=== PATIENT | female | born 1995 | race Caucasian/White ===

== ENCOUNTER 2024-08-24 07:01 | Emergency (ER) | payer OTHER, SELFPAY ==
[2024-08-24 07:07] VITALS: BP 115/75; PULSE 96; RESP 18; TEMP 36.8; O2SAT 99; BMI 28.0
[2024-08-24 07:34] LABS: Appearance Urine Clear; Basophils Percent Auto 0.2 % (0-2); Color Urine Yellow; Eosinophils Percent Auto 0.2 % (0-4); Glucose Urine UA Negative (Negative); Hematocrit 39.5 % (37.0-47.0); Hemoglobin 13.3 g/dl (12.0-16.0); Imm Gran Abs Auto 0.02 X10*3/uL (0.00-0.03); Imm Gran Pct Auto 0.3 % (0.0-0.4); Leukocyte Esterase Urine Trace (Negative); Lymphocytes Absolute Auto 0.3 X10*3/uL (1.2-4.9); Lymphocytes Percent Auto 4.1 % (20-40); MANUAL DIFF FLAG SCAN; Mean Corpuscular HGB Conc 33.7 g/dl (31.0-35.0); Mean Corpuscular Hemoglobin 29.2 pg (27.0-33.0); Mean Corpuscular Volume 86.6 fL (80.0-98.0); Mean Platelet Volume 9.4 fL (9.4-12.3); Monocytes Absolute Auto 0.3 X10*3/uL (0.1-1.2); Monocytes Percent Auto 4.4 % (2-11); Neutrophils Percent Auto 90.8 % (45-73); Nitrite Urine Negative (Negative); Platelet Count 233 X10*3/uL (160-400); Red Blood Count 4.56 X10*6/uL (4.20-5.50); SCAN SMEAR FLAG 1; Specific Gravity - Urine 1.025 (1.005-1.025); UMIC TRIGGER UACC YES; Urine Blood Trace (Negative); Urine Ketones 40 mg/dL (Negative); Urine Protein Negative (Neg-Trace); White Blood Count 6.6 X10*3/uL (4.8-10.8)
[2024-08-24 07:36] LABS: UPreg QC Valid YES; Urine Pregnancy NEGATIVE (NEGATIVE)
[2024-08-24 07:39] LABS: Bacteria Urine 1+ (None Seen); Hyaline Casts Urine 0-2 /LPF (0-2); WBC Urine 0-5 /HPF (0-5)
--- NOTE | 2024-08-24 07:42 | ED_ITS ---
HPI - General Adult General Chief complaint: Nausea/Vomiting/Diarrhea Stated complaint: vomitting Time Seen by Provider: 08/24/24 07:42 History of Present Illness ED Provider: Анна MONTERO narrative: The patient is a 29-year-old female who says that she started to feel acutely nauseated last night when she was eating dinner at around 6 or 19:00. She says that she had just finished eating when she went to the bathroom and started to vomit and have diarrhea. She had recurrent episodes of vomiting and diarrhea throughout the night and this morning and finally came to the emergency room because of the symptoms. She says that she thinks she has probably had more diarrhea than vomiting. She says that it felt like I was peeing out my butt. No recent antibiotics. No definite fever. No definite pain. Related Data Previous Rx's ?Medication ?Instructions ?Recorded ondansetron 4 mg disintegrating 4 mg PO Q6H PRN nausea and 08/24/24 tablet vomiting #10 tabs Allergies Allergy/AdvReac Type Severity Reaction Status Date / Time Penicillins [PENICILLINS] Allergy Intermediate HIVES Verified 08/24/24 07:08 Review of Systems 2 Review of Systems: Yes all other systems are reviewed and are negative PMFSH Social History Social History Advance Directives: No Advance Directives Information Provided: No Physical Exam ED Vital Signs: Vital Signs - 24 hr 08/24/24 07:07 08/24/24 10:03 Temperature 98.3 F 98.3 F Pulse Rate 96 96 Respiratory Rate 18 18 Blood Pressure 115/75 115/75 Pulse Oximetry 99 99 Oxygen Delivery Method Room Air Room Air BMI result Body Mass Index 28.0 Const Other: The patient is awake, alert, pleasant, cooperative. She does not appear in overt distress. HENMT Other: Face is symmetrical. Mucous membranes moist. Eyes General: appearance normal, both eyes and all related structures Neck Neck: Yes full ROM Resp Effort & Inspection: normal respiratory effort Auscultation: clear to auscultation bilaterally Cardio Rate: regular rate Rhythm: regular rhythm Heart sounds: S1 normal heart sound present and S2 normal heart sound present GI Other: The abdomen seemed flat, soft, and nontender. Skin General skin exam: no rashes or lesions noted Neuro Other: The patient is awake and alert with a normal mental status. Cranial nerves are grossly intact. She moves her extremities normally and appropriately. Extrem Other: No peripheral edema Medications Administered Discontinued Medications Generic Name Dose Route Start Last Admin Trade Name Abdullahi PRN Reason Stop Dose Admin Sodium Chloride 1,000 mls @ 999 mls/hr 08/24/24 08:00 08/24/24 09:30 Ns IV 08/24/24 09:00 Infused .Q1H1M KEO Infusion Ketorolac Tromethamine 10 mg 08/24/24 07:50 08/24/24 08:04 Ketorolac Tromethamine 15 Mg/Ml Vial IVPUSH 08/24/24 07:51 10 mg ONCE ONE Administration Loperamide HCl 4 mg 08/24/24 09:42 08/24/24 10:00 Loperamide Hcl 2 Mg Capsule PO 08/24/24 09:43 4 mg ONCE ONE Administration Ondansetron HCl 4 mg 08/24/24 07:49 08/24/24 08:04 Ondansetron Hcl 4 Mg/2 Ml Vial IVPUSH 08/24/24 07:50 4 mg ONCE ONE Administration Medical Decision Making Medical Decision Making [facility] Narrative: The patient is a 29-year-old female who presents with nausea, vomiting, and diarrhea that started last night. No recent antibiotics. She seems to have a benign abdomen. Clinically she does not look toxic. Labs are unremarkable. She was treated symptomatically with IV fluids, ketorolac, and ondansetron. She was also given a dose of oral loperamide. She looked and felt better. She will be discharged with instructions for viral gastroenteritis. Lab Data 08/24/24 07:27 08/24/24 07:27 Labs: Lab Results 08/24/24 Range/Units 07:27 WBC 6.6 (4.8-10.8) X10*3/uL RBC 4.56 (4.20-5.50) X10*6/uL Hgb 13.3 (12.0-16.0) g/dl Hct 39.5 (37.0-47.0) % MCV 86.6 (80.0-98.0) fL MCH 29.2 (27.0-33.0) pg MCHC 33.7 (31.0-35.0) g/dl RDW 14.0 (11.0-16.0) % Plt Count 233 (160-400) X10*3/uL MPV 9.4 (9.4-12.3) fL Immature Gran % (Auto) 0.3 (0.0-0.4) % Neut % (Auto) 90.8 H (45-73) % Lymph % (Auto) 4.1 L (20-40) % [place] % (Auto) 4.4 (2-11) % Eos % (Auto) 0.2 (0-4) % Baso % (Auto) 0.2 (0-2) % Lymph # (Auto) 0.3 L (1.2-4.9) X10*3/uL [place] # (Auto) 0.3 (0.1-1.2) X10*3/uL Eos # (Auto) 0.0 (0.0-0.4) X10*3/uL Baso # (Auto) 0.0 (0.0-0.2) X10*3/uL Abs Immat Gran (auto) 0.02 (0.00-0.03) X10*3/uL Absolute Neuts (auto) 6.0 (2.0-8.3) x10*3/uL Absolute Nucleated RBC 0.000 (0.0-0.012) X10*3/uL Nucleated RBC % (auto) 0.0 (0.0-0.2) /100WBC Smear Tech's Comments VERIFIED Sodium 136 (135-145) mmol/L Potassium 3.6 (3.3-5.1) mmol/L Chloride 107 (96-108) mmol/L Carbon Dioxide 21 L (22-29) mmol/L Anion Gap 12 (12-20) BUN 14 (9-16) mg/dL Creatinine 0.68 (0.5-1.4) mg/dL Estim Creat Clear Calc 149.9 Estimated GFR > 60 Random Glucose 105 (60-115) mg/dL Calcium 8.6 (8.4-10.2) mg/dL Total Bilirubin 1.0 (0.0-1.0) mg/dL AST 18 (5-31) U/L ALT 16 (0-31) U/L Alkaline Phosphatase 57 (39-117) U/L Total Protein 7.1 (6.5-8.0) g/dL Albumin 4.0 (3.5-5.0) g/dL Lipase 12 (8-78) U/L Urine Color Yellow Urine Appearance Clear Urine pH 6.0 (5.0-9.0) Ur Specific [place] 1.025 (1.005-1.025) Urine Protein Negative (Neg-Trace) mg/dL Urine Glucose (UA) Negative (Negative) mg/dL Urine Ketones 40 (Negative) mg/dL Urine Blood Trace H (Negative) Urine Nitrite Negative (Negative) Ur Leukocyte Esterase Trace H (Negative) Urine RBC 11-20 H (0-2) /HPF Urine WBC 0-5 (0-5) /HPF Ur Squamous Epith Cells 6-10 (0-2) /HPF Urine Bacteria 1+ (None Seen) Hyaline Casts 0-2 (0-2) /LPF Urine Test NEGATIVE (NEGATIVE) Influenza Type A (PCR) NEGATIVE (Negative) Influenza Type B (PCR) NEGATIVE (Negative) RSV RNA Qual (PCR) NEGATIVE (Negative) SARS-CoV-2 RNA (RT-PCR) NEGATIVE (Negative) Discharge Plan Discharge Clinical Impression: Abdominal pain, vomiting, and diarrhea Patient Disposition: Home, Self-Care Instructions: Acute Nausea and Vomiting (ED), Acute Diarrhea (ED) Additional Instructions: I think that you have some kind of a viral illness causing your nausea, vomiting, and diarrhea. My expectation is that this will be a self-limiting illness and I hope you will start feeling better soon. Your laboratory testing has been very reassuring here in the emergency room today. I have sent a prescription for ondansetron, medication you may use if you have ongoing nausea. Try to eat simple foods like bananas, rice, applesauce, and toast over the next several days. Clear fluids. Please follow up with your regular doctor or return to the emergency room if significantly worse. Prescriptions: New ondansetron 4 mg tablet,disintegrating 4 mg PO Q6H PRN (Reason: nausea and vomiting) Qty: 10 0RF Stand Alone Forms: Work/School Release Interventions: ED Discharge Assessment Last Done: 08/24/24 10:03 Discharge Date/Time: 08/24/24 10:05 Print Language: Luxembourgish
[2024-08-24 07:52] LABS: Alanine Aminotransferase 16 U/L (0-31); Alkaline Phosphatase 57 U/L (39-117); Anion Gap 12 (12-20); Aspartate Amino Transferase 18 U/L (5-31); Blood Urea Nitrogen 14 mg/dL (9-16); Calcium 8.6 mg/dL (8.4-10.2); Carbon Dioxide 21 mmol/L (22-29); Chloride 107 mmol/L (96-108); Creatinine Clr Calc Pharmacy 149.9; Estimated Glomerular Filt Rate > 60; Glucose Random 105 mg/dL (60-115); Lipase 12 U/L (8-78); Potassium 3.6 mmol/L (3.3-5.1); Sodium 136 mmol/L (135-145); Total Protein 7.1 g/dL (6.5-8.0)
[2024-08-24 08:01] LABS: SLIDE REVIEW VERIFIED
[2024-08-24] MEDS: 0.9 % Sodium Chloride 1,000 ML 999 ML IV (08:04)
[2024-08-24] MEDS: Ketorolac Tromethamine 15 MG/ML VIAL 10 MG IVPUSH (08:04)
[2024-08-24] MEDS: ondansetron HCL 4 MG/2 ML VIAL IVPUSH (08:04)
[2024-08-24 08:28] LABS: Influenza A PCR NEGATIVE (Negative); Influenza B PCR NEGATIVE (Negative); Resp Syncy Virus RNA Qual PCR NEGATIVE (Negative); SARS COV2 PCR INHOUSE NEGATIVE (Negative)
[2024-08-24] MEDS: Loperamide HCl 2 MG CAPSULE 4 MG PO (10:00)
[2024-08-24 10:03] VITALS: BP 115/75; PULSE 96; RESP 18; TEMP 36.8; O2SAT 99
== END 2024-08-24 10:05 | disposition home or self-care (01) ==
PROVIDERS: Emergency Provider Emergency Medicine
DX: R10.9 Unspecified abdominal pain (principal); R11.2 Nausea with vomiting, unspecified; R19.7 Diarrhea, unspecified; Z03.818 Encounter for observation for suspected exposure to other biological agents ruled out; Z79.899 Other long term (current) drug therapy
CPT/HCPCS: 0241U; 36415; 80053; 81001; 81025; 83690; 85025; 96361; 96374; 96375; 99283; 99284; J1885; J2405

== ENCOUNTER 2025-05-21 22:08 | Emergency (ER) | payer OTHER, SELFPAY ==
--- NOTE | ~2025-05-21 | US_ITS ---
CLINICAL HISTORY: severe right-sided abdpain after intercourse US pelvis transvaginal and transabdominal Comparison: None provided Findings: Transvaginal scanning performed. Anteverted uterus is 8.2 x 4.4 x 6.1 cm length. Normal myometrium. Intrauterine device appears to be appropriately seated. No endometrial lesion, 7 mm thickness. Right ovary 5.4 x 2.9 x 4.9 cm. Left ovary 3.5 x 2.2 x 2.7 cm. Normal color Doppler of both ovaries. There is a 3.3 x 2.3 x 9 cm fluid collection adjacent to the uterine fundus. IMPRESSION: 1. Unremarkable sonographic appearance of the uterus and both ovaries. 2. No ovarian torsion. 3. IUD appears to be appropriately positioned. 4. Collection of simple appearing fluid near the uterine fundus, nonspecific and short-term ultrasound may be considered to assess for evolution or stability of these findings 5. Additional findings as above. This document has been electronically signed by: Andrew Veliz MD on 05/22/2025 01:39:10
[2025-05-21 22:11] VITALS: BP 139/64; PULSE 72; RESP 16; TEMP 36.6; O2SAT 100; BMI 28.7
--- OUTSIDE RECORDS SUMMARY | 2025-05-21 22:50 | XMS_ITS ---
Author Name [facility] Organization Unknown Care Team Organization Name Specialty Phone Email Start Date End [facility] te [facility] Ben Pickering Primary Care 05/02/202201/23
--- OUTSIDE RECORDS SUMMARY | 2025-05-21 22:51 | XMS_ITS | Clinical Summary ---
Author Organization [facility] [address] Address [address] [facility] [place] [address] Phone Care Team Providers Care Coordinate Measuring Machine Technician Name Role Phone Bill Lopez MD Primary Care Provider [phone] Allergies Active Allergy Reactions Criticality Noted Date Comments House Dust Sneezing 02/09/2012 Itchy nose, watery eyes Penicillins Rash 08/01/2011 Pollen Extracts Sneezing 02/09/2012 Itchy nose, watery eyes Medications cetirizine (ZyrTEC) 10 mg tablet Take 1 tablet (10 mg total) by mouth if needed for allergies. Active Surgical History Surgery Date Site/Laterality Comments OTHER SURGICAL HISTORY x2 PROCEDURE: LUMBAR PUNCTURE TRAY; COMMENT: for NPH APPENDECTOMY 02/04/2017 PROCEDURE: HISTORICAL APPENDECTOMY; COMMENT: [facility] Medical History Medical History Date Comments Pseudotumor cerebri DX:Pseudotum or cerebri; COMMENT: followed by Dr. Isaac Optic nerve edema DX:Optic nerve edema; COMMENT: by Dr. 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; COMMENT: [email or web address] Anxiety DX:Anxiety Family History Medical History Relation Name Comments Hypertension Father Breast cancer Neg Hx Colon cancer Neg Hx Ovarian cancer Neg Hx Pancreatic cancer Neg Hx Prostate cancer Neg Hx Uterine cancer Neg Hx Relation Name Status Comments Daughter Alive [facility] Father Alive bp issues Maternal Grandfather Maternal Grandmother Alive Mother Alive Paternal Grandfather Paternal Grandmother Sister Alive Social History Tobacco Use Types Packs/Day Years Used Date Smoking Tobacco: Every Day Cigarettes Smokeless Tobacco: Never Tobacco Cessation:Ready to Q uit: Not Asked; Counseling Given: Not Answered Alcohol Use Standard Drinks/Week Comments Yes 0 (1 standard drink = 0.6 oz pur e alcohol) social Comments No Sex and Gender Information Value Date Recorded Sex Assigned at Not on file Legal Sex Female 2:25 PM EST Gender Identity Not on file Sexual Orientation Not on file Obstetrics History Last Filed Vital Signs Vital Sign Reading Time Taken Comments Blood Pressure 118/75 07/22/2024 4:25 PM EST Pulse 68 07/22/2024 4:25 PM EST Temperature 36.7 C (98 F) 07/22/2024 4:25 PM EST Respiratory Rate - - Oxygen Saturation - - Inhaled Oxygen Concentration - - Weight 90.3 kg (199 lb) 07/22/2024 4:25 PM EST Height 177.8 cm (5' 10 ) 07/22/2024 4:25 PM EST Body Mass Index 28.55 07/22/2024 4:25 PM EST Plan of Treatment Health Maintenance Due Date Last Done Comments Pneumococcal Vaccine: Pediatrics (0 to 5 Years) and At-Risk Patients (6 to 49 Years) (1 of 2 - PCV) 2016 DTaP,Tdap,and Td Vaccines (7 - Td or Tdap) 06/10/2019 06/10/2009, 12/09/2002, 07/20/1998, Additional history exists Cervical Cancer Screening: Pap Smear 07/04/2021 07/04/2018 Cholesterol Screening (Lipid Panel) 05/24/2022 HIV Screening 05/24/2022 Hepatitis C Screening 05/24/2022 Social Influencers of Health Screening 05/24/2022 Depression Screening 06/25/2024 COVID-19 Vaccine ( season) 2025 07/22/2021, 08/03/2020, 07/13/2020 Influenza Vaccine (#1) 2025 04/23/2020 RSV Immunization Adult Patients (1 - 1-dose 75+ series) 2072 HIB Vaccines Completed 07/20/1998, 06/26, 1997, Additional history exists Hepatitis B Vaccines Completed 10/28/1998, 1997, 1997 MMR Vaccines Completed 02/14/2001, 04/15/1998 IPV Vaccines Completed 12/09/2002, 06/26, 07/20/1998, Additional history exists Varicella Vaccines Completed 06/10/2009, 04/15/1998 HPV Vaccines Completed 02/20/2013, 03/25, 02/09/2012 Meningococcal ACWY Vaccine Completed 07/05/2015, Hepatitis A Vaccines Aged Out No long er eligible based on patient's age to complete this topic Meningococcal B Vaccine Aged Out No l onger eligible based on patient's age to complete this topic RSV Immunization Patients Under 20 months Aged Out No longer eligible based on patient's age to complete this topic Procedures Procedure Name Priority Date/Time Associated Diagnosis Comments PAP SMEAR Routine 07/04/2018 from Last 3 Months or Most Recently Relevant to Health Maintenance Results * Pap smear (07/04/2018) 07/04/2018 Narrative HISTORICAL TESTING LAB RESULTING AGENCY - 07/09/2018 2:22 PM EST [id number] THINPREP PAP, IMAGED: NEGATIVE FOR SQUAMOUS INTRAEPITHELIAL LESION AND MALIGNANCY . MU ALLEN(ASCP) (CASE ELECTRONICALLY SIGNED 07 09 2018) ADEQUACY: SATISFACTORY ENDOCERVICAL/TRANSFORMATION ZONE COMPONENT PRESENT. SOURCE: THINPREP PAP HPV IF ASCUS, CERVICAL, IMAGED CLINICAL INFORMATION: HPV IF DIAGNOSIS OF ASCUS. Z12.4, Z01.419 Marlene [facility] LAB CYTOLOGY ORDERABLES Final Result HISTORICAL TESTING LAB RESULTING AGENCY from Last 3 Months or Most Recently Relevant to Health Maintenance Insurance MEDICAID - [place] Care Teams Coordinate Measuring Machine Technician Relationship Specialty Start Date End Date Bill Lopez MD [address] [place] [id number] PCP - General Internal Medicine 07/22/24
--- OUTSIDE RECORDS SUMMARY | 2025-05-21 22:51 | XMS_ITS | Clinical Summary ---
Author Organization [facility] Address [address] [place] [id number] Phone Care Team Providers Care Slag Mixer Name Role Phone Ben Pickering MD Primary Care Provider Allergies Active Allergy Reactions Criticality Noted Date Comments Amoxicillin 10/10/2023 Penicillins 10/10/2023 Medications spironolactone (ALDACTONE) 50 MG tablet Take 2 tablets by mouth every morning. 03/24/2025 Active Active Problems Problem Noted Date Diagnosed Date Tick bite of lower back 04/20/2025 Encounters Date Type Department Care Team Description 04/20/2025 10:20 AM EDT Office Visit [facility] [address] [id number] Randee Gomez, Mihaela Aguilar PA-C Tick bite of lower back, initial encounter (Primary Dx) from Last 3 Months Social History Tobacco Use Types Packs/Day Years Used Date Smoking Tobacco: Every Day Cigarettes Tobacco Cessation:Ready to Q uit: Not Asked; Counseling Given: Not Answered Education Answer Date Recorded Are you interested in more education? Not on matthew e 10/10/2023 Are you concerned about learning? Not on file 10/10/2023 No 10/10/2023 No 10/10/2023 Digital Access Answer Date Recorded No 10/10/2023 No 10/10/2023 Reliable internet access at home? Not on file 10/10/2023 Device with a working camera? Not on file Comments Unknown Sex and Gender Information Value Date Recorded Sex Assigned at Not on file Legal Sex Female 8:35 AM EDT Gender Identity Not on file Sexual Orientation Not on file Last Filed Vital Signs Vital Sign Reading Time Taken Comments Blood Pressure 124/82 04/20/2025 11:06 AM EDT Pulse 68 04/20/2025 11:06 AM EDT Temperature 36.2 C (97.2 F) 04/20/2025 11:06 AM EDT Respiratory Rate 18 04/20/2025 11:06 AM EDT Oxygen Saturation 99% 04/20/2025 11:06 AM EDT Inhaled Oxygen Concentration - - Weight 86.6 kg (191 lb) 10/10/2023 9:09 AM EDT p er pt Height - - Body Mass Index - - Plan of Treatment Health Maintenance Due Date Last Done Comments POTASSIUM LEVEL 1997 DEPRESSION SCREENING 2009 SMOKING Hx and SMOKELESS TOBACCO SCREENING 2010 HEPATITIS C SCREENING 2015 HIV ONE-TIME SCREENING (18-65 YEARS) 2015 PNEUMOCOCCAL VACCINES (0-49 years) (1 of 2 - PCV) 2016 Adult Td,Tdap Booster 06/10/2019 06/10/2009 PAP SMEAR 07/04/2021 07/04/2018 INFLUENZA VACCINE (#1) 2025 04/23/2020 COVID-19 VACCINE ( season) 2025 07/22/2021, 08/03/2020, 07/13/2020 HIB VACCINES Completed 07/20/1998, 09/25, 1997, Additional history exists MENINGOCOCCAL VACCINES (ACWY) Completed 07/05/2015, 06/10/2009 HEPATITIS A VACCINES Aged Out No long er eligible based on patient's age to complete this topic MENINGOCOCCAL VACCINES (B) Aged Out N o longer eligible based on patient's age to complete this topic Medical Devices Not on file Care Teams Slag Mixer Relationship Specialty Start Date End Date Ben Pickering MD [address] [place] [id number] PCP - General 10/10/23 Additional Source Comments The information contained in this document represents components of the legal health record. It is not the complete legal health record.[facility]
[2025-05-21 22:56] LABS: Hematocrit 35.7 % (37.0-47.0); Hemoglobin 11.9 g/dl (12.0-16.0); Imm Gran Abs Auto 0.05 X10*3/uL (0.00-0.03); Imm Gran Pct Auto 0.3 % (0.0-0.4); Lymphocytes Absolute Auto 1.6 X10*3/uL (1.2-4.9); MANUAL DIFF FLAG NO; Mean Corpuscular HGB Conc 33.3 g/dl (31.0-35.0); Mean Corpuscular Hemoglobin 29.3 pg (27.0-33.0); Mean Corpuscular Volume 87.9 fL (80.0-98.0); NRBC Abs Auto 0.000 X10*3/uL (0.0-0.012); NRBC Pct Auto 0.0 /100WBC (0.0-0.2); Platelet Count 230 X10*3/uL (160-400); Red Blood Count 4.06 X10*6/uL (4.20-5.50); White Blood Count 15.2 X10*3/uL (4.8-10.8)
--- NOTE | 2025-05-21 23:05 | ED_ITS ---
HPI - Abdominal Pain General Chief Complaint: Abdominal Pain Stated Complaint: Stomach Pain Time Seen by Provider: 05/21/25 22:48 Source: patient Mode of arrival: ambulatory Limitations: no limitations History of Present Illness ED Provider: CHRISTIANO MONTERO narrative: 30-year-old female with past medical history of PCOS, has had IUD in place, prior appendectomy, ovarian cysts, who had penetrative sexual intercourse around 11 then developed severe sharp right-sided abdominal pain. She had very pink spotting but no bleeding. She states the severity of the pain has subsided but she still has a lingering discomfort. At the height of her pain she was sweating and nauseated. Prior to sexual intercourse she was feeling well. She has never had a ruptured ovarian cyst. MD elicited complaint: abdominal pain Pertinent past history: other ( PCOS) Onset (ago): hour(s) ( 2) Pain Consistency: colicky Location: RLQ Severity: severe Quality: stabbing and aching Radiation: none Migration to: no migration Exacerbating factors: movement Relieving factors: nothing Context: other Associated symptoms: nausea and other ( sweats) Related Data Previous Rx's ?Medication ?Instructions ?Recorded ondansetron 4 mg disintegrating 4 mg PO Q6H PRN nausea and 08/24/24 tablet vomiting #10 tabs Allergies Allergy/AdvReac Type Severity Reaction Status Date / Time Penicillins (PENICILLINS) Allergy Intermediate HIVES Verified 05/21/25 22:13 Review of Systems Review of Systems Constitutional : No Fever, No Chills, No Fatigue ENT/Mouth : No sore throat, No Rhinorrhea Eyes: No Eye Pain, No Swelling, No Redness Cardiovascular : No Chest Pain, No SOB, No Dyspnea on Exertion Respiratory : No Cough, No Sputum Gastrointestinal : pos Nausea, No Vomiting, No Diarrhea, pos abdominal Pain Genitourinary : No Dysuria, No Urinary Frequency, No Hematuria, Musculoskeletal : No joint pain, No Myalgias, No Joint Swelling Skin : No Skin Lesions, No rash All other systems reviewed and are negative PMFSH Past Medical History Attestation statement: The following information was validated with the patient. Medical History (Updated 05/22/25 @ 01:47 by Orin Arias DO) PCOS (polycystic ovarian syndrome) Surgical History (Updated 05/21/25 @ 23:09 by Orin Arias DO) S/P appendectomy Social History Social History (Updated 05/21/25 @ 23:09 by Orin Arias DO) Patient Tobacco Use Status: Tobacco use Unknown Advance Directives: No Advance Directives Information Provided: No Physical Exam ED Vital Signs: Vital Signs - 24 hr 05/21/25 22:11 Temperature 97.8 F Pulse Rate 72 Respiratory Rate 16 Blood Pressure 139/64 Pulse Oximetry 100 Oxygen Delivery Method Room Air BMI result Body Mass Index 28.7 Appearance: Alert. Oriented X3. No acute distress. Eyes: Pupils equal, round and reactive to light. ENT: Pharynx normal. Neck: Normal inspection. Neck supple. CVS: Normal heart rate and rhythm. Pulses normal. Respiratory: No respiratory distress. Breath sounds normal. Abdomen: Soft and mild lower abdominal pain but no rebound or guarding Skin: Skin warm and dry. Normal skin color. Normal skin turgor. Extremities: No lower extremity edema. Neuro: Oriented X 3. No motor deficit. No sensory deficit. Medical Decision Making Medical Decision Making [facility] Narrative: 30-year-old female with PMH of PCOS, IUD, appendectomy here with complaint of severe abdominal pain that is now colicky after sexual intercourse. She denies any significant vaginal bleeding. I suspect based off her history she had a ruptured ovarian cyst. Given her PCOS she will need labs, urine, IV Toradol for pain, ultrasound to evaluate for torsion, ruptured cyst. Differential Diagnosis Differential Diagnoses: The differential diagnosis associated with the presentation includes ovarian torsion, ruptured ovarian cysts, IUD malposition Admission/Observation Consideration of admission/observation: Escalation of care including admission/observation considered feels much better, stable for DC no acute findings to need admission suspect WBC count stress response Lab Data [facility] Lab Attestation statement: I reviewed the patient's lab results. 05/21/25 22:46 05/21/25 22:46 Labs: Lab Results 05/21/25 05/21/25 Range/Units 22:46 23:29 WBC 15.2 H (4.8-10.8) X10*3/uL RBC 4.06 L (4.20-5.50) X10*6/uL Hgb 11.9 L (12.0-16.0) g/dl Hct 35.7 L (37.0-47.0) % MCV 87.9 (80.0-98.0) fL MCH 29.3 (27.0-33.0) pg MCHC 33.3 (31.0-35.0) g/dl RDW 13.0 (11.0-16.0) % Plt Count 230 (160-400) X10*3/uL MPV 9.4 (9.4-12.3) fL Immature Gran % (Auto) 0.3 (0.0-0.4) % Neut % (Auto) 84.2 H (45-73) % Lymph % (Auto) 10.7 L (20-40) % [place] % (Auto) 4.4 (2-11) % Eos % (Auto) 0.2 (0-4) % Baso % (Auto) 0.2 (0-2) % Lymph # (Auto) 1.6 (1.2-4.9) X10*3/uL [place] # (Auto) 0.7 (0.1-1.2) X10*3/uL Eos # (Auto) 0.0 (0.0-0.4) X10*3/uL Baso # (Auto) 0.0 (0.0-0.2) X10*3/uL Abs Immat Gran (auto) 0.05 H (0.00-0.03) X10*3/uL Absolute Neuts (auto) 12.8 H (2.0-8.3) x10*3/uL Absolute Nucleated RBC 0.000 (0.0-0.012) X10*3/uL Nucleated RBC % (auto) 0.0 (0.0-0.2) /100WBC Sodium 141 (135-145) mmol/L Potassium 4.1 (3.3-5.1) mmol/L Chloride 108 (96-108) mmol/L Carbon Dioxide 24 (22-29) mmol/L Anion Gap 13 (12-20) BUN 12 (9-16) mg/dL Creatinine 0.65 (0.5-1.4) mg/dL Estim Creat Clear Calc 157.4 Estimated GFR > 60 Random Glucose 119 H (60-115) mg/dL Calcium 9.0 (8.4-10.2) mg/dL Total Bilirubin 0.3 (0.0-1.0) mg/dL AST 19 (5-31) U/L ALT 10 (0-31) U/L Alkaline Phosphatase 50 (39-117) U/L Total Protein 6.8 (6.5-8.0) g/dL Albumin 4.2 (3.5-5.0) g/dL Beta HCG, Quant < 2 mIU/mL Urine Color Yellow Urine Appearance Cloudy Urine pH 6.5 (5.0-9.0) Ur Specific [place] 1.020 (1.005-1.025) Urine Protein Negative (Neg-Trace) mg/dL Urine Glucose (UA) Negative (Negative) mg/dL Urine Ketones 40 (Negative) mg/dL Urine Blood Negative (Negative) Urine Nitrite Negative (Negative) Ur Leukocyte Esterase Negative (Negative) Independent Interpretation I performed an independent interpretation of an: Ultrasound (free fluid noted no torsion, IUD in place) Radiology Impression Discussion of test interpretation with radiology: I have reviewed the radiologist's reading. Independent Historian Clinical information obtained from an independent historian. History obtained from or confirmed by: Other External Record Review External record reviewed: Outpatient record Prescription Management I considered prescription management with: Other Medications Administered Discontinued Medications Generic Name Dose Route Start Last Admin Trade Name Freq PRN Reason Stop Dose Admin Lactated Ringer's 1,000 mls @ 999 mls/hr 05/21/25 23:45 05/21/25 23:51 Lr IV 05/22/25 00:45 999 mls/hr .Q1H1M ONE Administration Ketorolac Tromethamine 15 mg 05/21/25 23:01 05/21/25 23:15 Ketorolac Tromethamine 15 Mg/Ml Vial IVPUSH 05/21/25 23:02 15 mg ONCE ONE Administration Ondansetron HCl 4 mg 05/21/25 23:01 05/21/25 23:15 Ondansetron Hcl 4 Mg/2 Ml Vial IVPUSH 05/21/25 23:02 4 mg ONCE ONE Administration Discharge Plan Discharge Clinical Impression: Ovarian cyst rupture Pelvic pain Qualifiers: Laterality: right Qualified Code(s): R10.21 - Pelvic and perineal pain right side Patient Disposition: Home, Self-Care Instructions: Ovarian Cyst (ED), Pelvic Pain (ED) Additional Instructions: your test was negative, your labs are reassuring, your urine was reassuring. your ultrasound showed free fluid which I suspect goes along with a ruptured cyst Your IUD is in place Please practice pelvic rest meaning no sexual intercourse for 1 week. Please return for any worsening symptoms or concerns such as heavy bleeding, fever over 100.4, vomiting, worsening pain or any other concerns please follow up with your OBGYN or primary care provider in the next 1-2 weeks as you will likely need a repeat ultrasound in 4 weeks IMPRESSION: 1. Unremarkable sonographic appearance of the uterus and both ovaries. 2. No ovarian torsion. 3. IUD appears to be appropriately positioned. 4. Collection of simple appearing fluid near the uterine fundus, nonspecific and short-term ultrasound may be considered to assess for evolution or stability of these findings 5. Additional findings as above Prescriptions: No Action ondansetron 4 mg tablet,disintegrating 4 mg PO Q6H PRN (Reason: nausea and vomiting) Qty: 10 0RF Stand Alone Forms: Work/School Release Print Language: Peruvian
[2025-05-21 23:19] LABS: Alanine Aminotransferase 10 U/L (0-31); Albumin Level 4.2 g/dL (3.5-5.0); Alkaline Phosphatase 50 U/L (39-117); Anion Gap 13 (12-20); Aspartate Amino Transferase 19 U/L (5-31); Blood Urea Nitrogen 12 mg/dL (9-16); Calcium 9.0 mg/dL (8.4-10.2); Carbon Dioxide 24 mmol/L (22-29); Chloride 108 mmol/L (96-108); Creatinine Clr Calc Pharmacy 157.4; Estimated Glomerular Filt Rate > 60; Potassium 4.1 mmol/L (3.3-5.1); Sodium 141 mmol/L (135-145); Total Protein 6.8 g/dL (6.5-8.0)
[2025-05-21 23:36] LABS: Appearance Urine Cloudy; Glucose Urine UA Negative (Negative); PH 6.5 (5.0-9.0); Specific Gravity - Urine 1.020 (1.005-1.025)
[2025-05-21] MEDS: Lactated Ringers 1,000 ML 999 ML IV (23:51)
--- NOTE | 2025-05-22 00:22 | PC.NURSE ---
pt off unit for U/S
[2025-05-22 01:49] VITALS: BP 116/69; PULSE 71; RESP 16; TEMP 36.7; O2SAT 99
[2025-05-22 01:55] VITALS: BP 116/69; PULSE 71; RESP 16; TEMP 36.7; O2SAT 99
== END 2025-05-22 01:55 | disposition home or self-care (01) ==
PROVIDERS: Emergency Provider Emergency Medicine
DX: N83.201 Unspecified ovarian cyst, right side (principal); R10.21 Pelvic and perineal pain right side; Z97.5 Presence of (intrauterine) contraceptive device; Z88.0 Allergy status to penicillin
CPT/HCPCS: 36415; 76830; 76856; 80053; 81003; 84702; 85025; 93975; 96361; 96374; 96375; 99284; J1885; J2405; J7120

== ENCOUNTER → 2025-05-22 | Outpatient (BNV) | payer OTHER, SELFPAY | PROVIDERS: Emergency Provider Emergency Medicine; Visit Provider Radiology Diagnostic Radiology | DX: R10.31 Right lower quadrant pain (principal); R18.8 Other ascites; Z97.5 Presence of (intrauterine) contraceptive device | CPT/HCPCS: 76830; 76856 ==

== ENCOUNTER 2025-05-30 17:15 | Emergency (ER) | payer SELFPAY ==
--- OUTSIDE RECORDS SUMMARY | 2025-05-30 17:33 | XMS_ITS | Clinical Summary ---
Author Organization [facility] Address [address] [facility] [address] [place] [phone] Phone Care Team Providers Care Anesthesiology Faculty Name Role Phone Ben Pickering MD Primary [...] Office Visit [facility] at [address] [address] Randee Gomez, Mihaela Aguilar PA-C Tick bite [...] Medical Devices Not on file Care Teams Anesthesiology Faculty Relationship Specialty Start Date End Date Ben Pickering MD [address] [place] [id number] PCP - General 10/10/23 Additional Source Comments The information contained in this document represents components of the legal health record. It is not the complete legal health record.[facility]
--- OUTSIDE RECORDS SUMMARY | 2025-05-30 17:33 | XMS_ITS | Clinical Summary ---
Author Organization [facility] [address] [facility] [address] Address [address] [facility] [place] [address] Phone Care Team Providers Care Grey Roll Worker Name Role Phone Bill Lopez MD Primary Care Provider [phone] Allergies Active Allergy Reactions Criticality Noted Date [...] [facility] APPENDECTOMY 02/04/2017 PROCEDURE: HISTORICAL APPENDECTOMY; COMMENT: [facility] Medical History Medical History Date Comments Pseudotumor [...] RESULTING AGENCY - 07/09/2018 2:22 PM EST [id number] THINPREP PAP, IMAGED: NEGATIVE FOR SQUAMOUS INTRAEPITHELIAL [...] Relevant to Health Maintenance Insurance MEDICAID - [id number] Care Teams Grey Roll Worker Relationship Specialty Start Date End Date Bill Lopez MD [address] [place] [phone] PCP - General Internal Medicine 07/22/24
== END 2025-05-30 17:42 | disposition left against medical advice (07) ==
PROVIDERS: Emergency Provider Emergency Medicine Emergency Medical Services
DX: K08.89 Other specified disorders of teeth and supporting structures (principal); Z53.21 Procedure and treatment not carried out due to patient leaving prior to being seen by health care provider